=== PATIENT | female | born 1960 | race Caucasian/White ===

== ENCOUNTER → 2022-07-26 | Day surgery (SDC) | payer BC ==
[~2022-07-26] MED LIST: ALPRAZOLAM0.25 M1 PO; CYCLOBENZAPRINE5 MG PO; HYDROXYZIN10 MG/5 ML PO; LACTATED RINGER'S 1,000 ML ONE; LIDOCAINE HCL 2% LOCAL INJ 5 ML SDV VIAL INJ ONE; MELATONIN3 MG PO; MIDAZOLAM HCL 2 MG/2 ML VIAL ONE; PROPOFOL IV EMULSION 10 MG/ML 20 ML VIAL ONE; TRAZODONE HCL50 MG PO; VITAMIN D310 MCG PO; [UNRECOGNIZED DRUG - OTHER] PO
[2022-07-26 09:12] VITALS: TEMP 98
[2022-07-26 09:25] VITALS: BP 142/80; PULSE 95; RESP 16; O2SAT 96
== END | disposition home or self-care (01) ==
LOC: OR 06:45
PROVIDERS: ATTEND Internal Medicine Gastroenterology
DX: Z12.11 Encounter for screening for malignant neoplasm of colon (principal); K29.50 Unspecified chronic gastritis without bleeding; K31.A11 Gastric intestinal metaplasia without dysplasia, involving the antrum; K21.00 Gastro-esophageal reflux disease with esophagitis, without bleeding; K59.00 Constipation, unspecified; K44.9 Diaphragmatic hernia without obstruction or gangrene; K64.8 Other hemorrhoids; E66.01 Morbid (severe) obesity due to excess calories; M06.9 Rheumatoid arthritis, unspecified; F41.9 Anxiety disorder, unspecified; Z01.810 Encounter for preprocedural cardiovascular examination; Z79.1 Long term (current) use of non-steroidal anti-inflammatories (NSAID); Z79.899 Other long term (current) drug therapy; Z68.41 Body mass index [BMI] 40.0-44.9, adult
CPT/HCPCS: 43239; 45378; 93005; J2001; J2250; J2704; J7121